=== PATIENT | female | born 2000 | race Caucasian/White ===

== ENCOUNTER 2024-04-26 11:44 | Emergency (ER) | payer OTHER, SELFPAY ==
[2024-04-26 11:50] VITALS: BP 104/72; PULSE 100; RESP 18; TEMP 36.6; O2SAT 98; BMI 16.3
--- NOTE | 2024-04-26 12:03 | ED.GENADULT ---
HPI - General Adult General Date Seen: 04/26/24 Chief complaint: Nausea/Vomiting Stated complaint: 8wks PG, vomiting, weakness Time Seen by Provider: 04/26/24 12:03 History of Present Illness HPI narrative: 23 yo F, G2, P 0 who is currently 8 weeks by dates (LMP was 03/02/2024) presenting to the ER today with nausea and vomiting. She actually developed symptoms of nausea and vomiting about a month ago. Initially she did not realize she was but she did have an positive at home test. She notes that she did have a about 2 years ago that ended in an intrauterine demise and ultimately a miscarriage. Other that she is healthy. No other previous gynecologic conditions or obstetric complications. No other long-term medical conditions. She did have an episode of some very light vaginal bleeding and pelvic cramping that occurred on March 25, about a month ago. She went to a clinic in [place] and had an evaluation. She was put on vitamin B6 for nausea and given prescriptions for Augmentin and Flagyl. Apparently her urine sample showed an infection. She stopped taking the antibiotics because they made her stomach more upset. At that time she was set up for her 1st appointment, which is scheduled to happen in about 3 weeks on May 18. For the past several weeks she has had ongoing nausea. She has been throwing up about 6 times per day every day. Typically watery or sometimes food. No bloody emesis. No diarrhea. She has not had any further abdominal pain or pelvic cramping. No further vaginal bleeding or fluid leakage. She has not had any fever. Other than having darker yellow urine than normal no other urinary symptoms or dysuria. She came to the ER today because she just is feeling dehydrated and needs better medicine for nausea. She has been using the vitamin B6, without any improvement. Related Data Previous Rx's ?Medication ?Instructions ?Recorded ondansetron HCl 4 mg tablet 4 mg PO Q8H PRN nausea and 04/26/24 vomiting #14 tabs Allergies Allergy/AdvReac Type Severity Reaction Status Date / Time No Known Drug Allergies Allergy Verified 04/26/24 11:56 PFSH PFSH Social History Smoking Status: Never smoker Do you use any of these nicotine containing products: None Second hand tobacco smoke exposure: No How often do you have a drink containing alcohol: never AUDIT-C Alcohol total score: 0 Non-prescribed substance use: denies use Exam Narrative: Exam Narrative: Constitutional: Appears well-developed and well-nourished. Alert. Conversant. Non toxic. HENT: Head: Atraumatic. Nose: Nose normal. Mouth/Throat: Oral mucosa is clear but dry. Mucous membranes not desiccated or cracked. Eyes: Conjunctivae normal. EOM normal. Pupils equal, round, and reactive to light. No scleral icterus. Neck: Normal range of motion. Neck supple. No tracheal deviation present. Cardiovascular: Normal rate, regular rhythm. No gallop. No friction rub. No murmur heard. Symmetric radial artery pulses Pulmonary/Chest: Effort normal. No stridor. No respiratory distress. No wheezes. No rales. No rhonchi . Abdominal: Soft. Bowel sounds normal. No distension. No mass. No tenderness. No rebound. No guarding. No CVA tenderness. Musculoskeletal: RUE: Normal range of motion. No tenderness. No deformity LUE: Normal range of motion. No tenderness. No deformity RLE: Normal range of motion. No edema. No tenderness. No deformity LLE: Normal range of motion. No edema. No tenderness. No deformity Neurological: Alert and oriented to person, place, and time. Normal strength. CN II-VII intact. No sensory deficit. GCS eye subscore is 4. GCS verbal subscore is 5. GCS motor subscore is 6. Normal coordination Skin: Skin is warm and dry. No rash noted. No pallor. Normal capillary refill. Psychiatric: Normal mood. Normal affect. Const: Vital Signs, click to edit/add: Vital Signs - 24 hr 04/26/24 11:50 Temperature 97.8 F Pulse Rate [Right Pulse Oximeter] 100 Respiratory Rate 18 Blood Pressure [Ri ght Upper Arm] 104/72 Pulse Oximetry 98 Oxygen Delivery Me thod Room Air Course Vital Signs Vital signs: Initial Vital Signs Temperature 97.8 F 04/26/24 11:50 Temperature Source Temporal Artery Scan 04/26/24 11:50 Pulse Rate 100 04/26/24 11:50 Respiratory Rate 18 04/26/24 11:50 Blood Pressure 104/72 04/26/24 11:50 Blood Pressure Mean 82 04/26/24 11:50 Blood Pressure Position Sitting 04/26/24 11:50 Pulse Oximetry 98 04/26/24 11:50 Oxygen Delivery Method Room Air 04/26/24 11:50 Vital Signs Temperature 97.8 F 04/26/24 11:50 Pulse Rate 100 04/26/24 11:50 Respiratory Rate 18 04/26/24 11:50 Blood Pressure 104/72 04/26/24 11:50 Pulse Oximetry 98 04/26/24 11:50 Oxygen Delivery Method Room Air 04/26/24 11:50 Temperature 97.8 F 04/26/24 11:50 Pulse Rate 100 04/26/24 11:50 Respiratory Rate 18 04/26/24 11:50 Blood Pressure 104/72 04/26/24 11:50 Pulse Oximetry 98 04/26/24 11:50 Oxygen Delivery Method Room Air 04/26/24 11:50 Medications Administered Medications: Discontinued Medications Generic Name Dose Route Start Last Admin Trade Name Freq PRN Reason Stop Dose Admin Ondansetron HCl 4 mg 04/26/24 12:30 04/26/24 12:37 Ondansetron Odt 4 Mg Tab PO 04/26/24 12:31 4 mg ONCE ONE Administration Medical Decision Making [facility] Narrative Medical decision making narrative: This is a G[]P[] female, currently a weeks , who presents for evaluation of nausea and vomiting. I considered a broad differential diagnosis for this patient including viral gastroenteritis, bacterial enteritis, food poisoning, bowel obstruction, intra-abdominal infection such as colitis, cholecystitis, UTI, pyelonephritis, appendicitis, among others. There are no signs of worrisome intra-abdominal pathologies detected during the visit today. The patient has a benign abdominal exam without rebound, guarding, or marked tenderness to palpation. I doubt ectopic based on bedside ultrasound here in the ER which confirms a live IUP. I see 1 intrauterine gestation with a normal heartbeat.. She is improved after medications and tolerating adequate PO. She is requesting discharge UA shows some bacteria but also has a contaminated specimen. Would hold off on antibiotics for now without a proper clean catch her catheterized specimen. She will follow up with her obstetrics clinic. Supportive outpatient management is therefore indicated. Reviewed return precautions with the patient. It was discussed with the patient to return to the ED for uncontrolled vomiting, weakness, problems with her , blood in stool, increasing pain, or fevers more than 102. Feels much improved after interventions in ED. Medications for home (Zofran ODT). Suspect symptoms are related to nausea and vomiting with / hyperemesis gravidarum. Lab Data Labs: Lab Results 04/26/24 Range/Units 12:45 Urine Color Yellow (Yellow) Urine Appearance Clear (Clear) Urine pH 6.0 (5.0-8.5) Ur Specific [place] >= 1.030 (1.000-1.030) Urine Protein 2+ A (Negative) Urine Glucose (UA) Negative (Negative) Urine Ketones 4+ A (Negative) Urine Blood Negative (Negative) Urine Nitrite Negative (Negative) Urine Bilirubin Negative (Negative) Urine Urobilinogen 0.2 (0.2-1.0) Ur Leukocyte Esterase 1+ A (Negative) Urine RBC 0-2 (0-2) Urine WBC 2-5 (0-5) Ur Squamous Epith Cells Many A (None-Few) Amorphous Sediment Moderate A (None) Urine Bacteria Moderate A (None) Urine Mucus Many A (None) Discharge Plan Discharge Clinical Impression: Nausea & vomiting Patient Disposition: Home, Self-Care Instructions: Acute Nausea and Vomiting (DC) Additional Instructions: With please come back to the ER right away if you have worsening or uncontrolled nausea and vomiting, weakness or dehydration, or if you have any vaginal bleeding or pelvic cramping. Please follow-up with your doctor for your next check Use Zofran if needed help treat nausea or vomiting. Prescriptions: New ondansetron HCl 4 mg tablet 4 mg PO Q8H PRN (Reason: nausea and vomiting) Qty: 14 0RF Follow Up/Referrals: Provider,Not a Local [Primary Care Provider] - Stand Alone Forms: [facility] Info Instructions Procedures Ultrasound Pelvic exam #1: Status: positive Anatomical areas examined: uterus Indications: evalutation for intrauterine and heart rate ( heart rate 140) Exam type: limited transabdominal ultrasound Findings: heartbeat and motion Impression: live IUP
[2024-04-26] MEDS: ONDANSETRON ODT 4 MG TAB PO (12:37)
[2024-04-26 12:52] LABS: Appearance Urine Clear (Clear); Bilirubin Urine Negative (Negative); Blood Urine Negative (Negative); Color Urine Yellow (Yellow); Glucose Urine Negative (Negative); Ketones Urine 4+ (Negative); Leukocyte Esterase Urine 1+ (Negative); Nitrite Urine Negative (Negative); Protein Urine 2+ (Negative); Specific Gravity Urine >= 1.030 (1.000-1.030); Urobilinogen Urine 0.2 (0.2-1.0)
[2024-04-26 12:58] LABS: RBC Urine 0-2 (0-2)
[2024-04-26 12:59] LABS: Amorphous Sediment Urine Moderate; Bacteria Urine Moderate; Mucus Urine Many; Squamous Epithelial Cell Urine Many (None-Few)
== END 2024-04-26 14:36 | disposition home or self-care (01) ==
PROVIDERS: Emergency Provider Emergency Medicine; Visit Provider Emergency Medicine
DX: R11.2 Nausea with vomiting, unspecified (principal); Z3A.08 8 weeks gestation of pregnancy
CPT/HCPCS: 76815; 81001; 87086; 99282; 99283; A9270

== ENCOUNTER 2024-05-09 17:31 | Emergency (ER) | payer OTHER, SELFPAY ==
[2024-05-09 17:47] VITALS: BP 97/67; PULSE 112; RESP 18; TEMP 37.1; O2SAT 99; BMI 16.3
[2024-05-09] MEDS: ONDANSETRON 2 MG/ML inj 4 MG IVP (19:04)
--- NOTE | 2024-05-09 19:04 | ED.NAVMDI ---
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 at 5+ 3 by reported LMP April 01, however patient had a visible intrauterine at appointment a couple weeks ago with bedside ultrasound which would the more consistent with later dates. Patient presents today with ongoing nausea vomiting. She reports she ran out of the Zofran that she was previously prescribed which was working well for her and has had nausea vomiting since. Denies abdominal pain, diarrhea, chest pain, breathing difficulty. No vaginal bleeding or leakage of fluid. No pelvic cramping or pain. Related Data Previous Rx's ?Medication ?Instructions ?Recorded ondansetron HCl 4 mg tablet 4 mg PO Q8H PRN nausea and 04/26/24 vomiting #14 tabs ondansetron 4 mg disintegrating 4 mg PO Q6H PRN nausea and 05/09/24 tablet vomiting #30 tabs Allergies Allergy/AdvReac Type Severity Reaction Status Date / Time No Known Drug Allergies Allergy Verified 04/26/24 11:56 PFSH PFSH Social History Smoking Status: Never smoker Do you use any of these nicotine containing products: None Second hand tobacco smoke exposure: No How often do you have a drink containing alcohol: never AUDIT-C Alcohol total score: 0 Non-prescribed substance use: denies use Exam Narrative: Exam Narrative: General: Well-developed and well-nourished, no acute distress Head: Atraumatic and normocephalic Eyes: Pupils are equal reactive, extraocular motions intact, conjunctiva clear ENT: External nose and ears are normal, posterior pharynx without erythema or exudate Neck: No midline cervical tenderness, full spontaneous range of motion the neck, trachea midline, no adenopathy Heart: Regular rate and rhythm no murmurs or thrills Lungs: Clear to auscultation bilaterally without wheezes or crackles Abdomen: Soft, nontender, nondistended with active bowel sounds Musculoskeletal: No tenderness, deformity, or edema Neurologic: Awake, alert, and oriented x3, no gross focal neurologic deficits, cranial nerves intact as tested Psych: Mood and affect are appropriate Skin: No rashes Const: Vital Signs, click to edit/add: Vital Signs - 24 hr 05/09/24 17:47 Temperature 98.7 F Pulse Rate [Pulse Oximeter] 112 H Respiratory Rate 18 Blood Pressure [Ri ght Upper Arm] 97/67 Pulse Oximetry 99 Oxygen Delivery Me thod Room Air Course Course ED Course: Patient seen examined, reviewed prior emergency department visit from April 26 when patient was seen for same, apparently scheduled for her 1st appointment on May 18. Patient reports nausea vomiting starting a couple days ago, ran out of Zofran which was previously prescribed. Denies abdominal pain, leakage of fluid, vaginal bleeding. On exam here patient is tachycardic, no abdominal tenderness. Do not suspect ectopic , miscarriage, pancreatitis, cholecystitis. Symptoms are most consistent with nausea vomiting . Patient given Zofran in the emergency department, labs ordered. If patient is high urine ketones or metabolic derangements, consider IV fluids. Otherwise encourage oral intake and anticipate discharge with Zofran. No indication for obstetric ultrasound today based on history and symptoms. Reevaluation(s) Time of Reevaluation #1: 20:09 Reevaluation #1: Labs independently interpreted by me with mild hypokalemia 3.4, normal magnesium, urinalysis with 4+ ketones, patient will be given 1 L of IV fluids, tolerating oral intake in the emergency department now. Anticipate discharge after fluids. Discussed with patient. Vital Signs Vital signs: Initial Vital Signs Temperature 98.7 F 05/09/24 17:47 Temperature Source Temporal Artery Scan 05/09/24 17:47 Pulse Rate 112 H 05/09/24 17:47 Pulse Rhythm Regular 05/09/24 17:47 Respiratory Rate 18 05/09/24 17:47 Blood Pressure 97/67 05/09/24 17:47 Blood Pressure Mean 77 05/09/24 17:47 Blood Pressure Position Sitting 05/09/24 17:47 Pulse Oximetry 99 05/09/24 17:47 Oxygen Delivery Method Room Air 05/09/24 17:47 Vital Signs Temperature 98.7 F 05/09/24 17:47 Pulse Rate 112 H 05/09/24 17:47 Respiratory Rate 18 05/09/24 17:47 Blood Pressure 97/67 05/09/24 17:47 Pulse Oximetry 99 05/09/24 17:47 Oxygen Delivery Method Room Air 05/09/24 17:47 Temperature 98.7 F 05/09/24 17:47 Pulse Rate 112 H 05/09/24 17:47 Respiratory Rate 18 05/09/24 17:47 Blood Pressure 97/67 05/09/24 17:47 Pulse Oximetry 99 05/09/24 17:47 Oxygen Delivery Method Room Air 05/09/24 17:47 Medications Administered Medications: Discontinued Medications Generic Name Dose Route Start Last Admin Trade Name Sandy PRN Reason Stop Dose Admin Ondansetron HCl 4 mg 05/09/24 18:45 05/09/24 19:04 Ondansetron 2 Mg/Ml Inj IVP 05/09/24 18:46 4 mg ONCE ONE Administration MDM - Nausea/Vomiting/Diarrhea Lab Data Labs: Lab Results 05/09/24 05/09/24 Range/Units 19:00 19:41 Sodium 135 (135-149) mmol/L Potassium 3.4 L (3.6-5.1) mmol/L Chloride 102 (96-114) mmol/L Carbon Dioxide 21 (20-32) mmol/L Anion Gap 12 (7-15) mEq/L BUN 9 (5-24) mg/dL Creatinine 0.5 (0.5-1.5) mg/dL Estimated Creat Clear 117.00 Estimated GFR 133 ml/min Glucose 90 (60-115) mg/dL Calcium 9.8 (8.4-10.6) mg/dL Magnesium 2.1 (1.5-2.6) mg/dL Urine Color [place] A (Yellow) Urine Appearance Turbid A (Clear) Urine pH 5.5 (5.0-8.5) Ur Specific [place] >= 1.030 (1.000-1.030) Urine Protein 1+ A (Negative) Urine Glucose (UA) Negative (Negative) Urine Ketones 4+ A (Negative) Urine Blood Trace-intact A (Negative) Urine Nitrite Negative (Negative) Urine Bilirubin 1+ A (Negative) Urine Urobilinogen 0.2 (0.2-1.0) Ur Leukocyte Esterase Trace A (Negative) Urine RBC 0-2 (0-2) Urine WBC 5-10 A (0-5) Ur Squamous Epith Cells Moderate A (None-Few) Urine Bacteria Moderate A (None) Discharge Plan Discharge Clinical Impression: Nausea and vomiting during Patient Disposition: Home, Self-Care Instructions: Nausea and Vomiting in (ED) Activity Level: Activity as Tolerated Discharge Diet: Regular Prescriptions: New ondansetron 4 mg tablet,disintegrating 4 mg PO Q6H PRN (Reason: nausea and vomiting) Qty: 30 0RF No Action ondansetron HCl 4 mg tablet 4 mg PO Q8H PRN (Reason: nausea and vomiting) Qty: 14 0RF Follow Up/Referrals: Provider,Not a Local [Primary Care Provider] - Stand Alone Forms: [facility] Info Instructions
[2024-05-09 19:23] LABS: Chloride* 102 mmol/L (96-114); Potassium* 3.4 mmol/L (3.6-5.1); Sodium* 135 mmol/L (135-149)
[2024-05-09 19:26] LABS: Anion Gap 12 mEq/L (7-15); Blood Urea Nitrogen* 9 mg/dL (5-24); Calcium* 9.8 mg/dL (8.4-10.6); Carbon Dioxide* 21 mmol/L (20-32); Creatinine* 0.5 mg/dL (0.5-1.5); Estimated Glomerular Filt Rate 133 ml/min; Glucose* 90 mg/dL (60-115)
[2024-05-09 19:27] LABS: Magnesium* 2.1 mg/dL (1.5-2.6)
[2024-05-09 19:55] LABS: Appearance Urine Turbid (Clear); Bilirubin Urine 1+ (Negative); Blood Urine Trace-intact (Negative); Color Urine Orange (Yellow); Glucose Urine Negative (Negative); Ketones Urine 4+ (Negative); Leukocyte Esterase Urine Trace (Negative); Nitrite Urine Negative (Negative); Protein Urine 1+ (Negative); Specific Gravity Urine >= 1.030 (1.000-1.030); Urobilinogen Urine 0.2 (0.2-1.0); pH Urine 5.5 (5.0-8.5)
[2024-05-09 20:00] VITALS: BP 102/67; PULSE 102; RESP 14; O2SAT 99
[2024-05-09 20:17] LABS: RBC Urine 0-2 (0-2)
[2024-05-09 20:18] LABS: Bacteria Urine Moderate; Squamous Epithelial Cell Urine Moderate (None-Few)
[2024-05-09] MEDS: 0.9 % SODIUM CHLORIDE 1000 ml 1,000 ML IV (20:31)
[2024-05-09 21:25] VITALS: BP 102/67; PULSE 102; RESP 18; TEMP 37.1
== END 2024-05-09 21:26 | disposition home or self-care (01) ==
PROVIDERS: Emergency Provider Family Medicine
DX: R11.2 Nausea with vomiting, unspecified (principal); Z3A.10 10 weeks gestation of pregnancy
CPT/HCPCS: 36415; 80048; 81001; 83735; 87086; 96374; 99283; 99284; J2405; J7030